=== PATIENT | female | born 1985 | race Caucasian/White ===

== ENCOUNTER 2017-10-10 17:45 | Inpatient (IN) | payer BC ==
[~2017-10-10] VITALS: Ht 170.2 cm; Wt 73.0 kg
[2017-10-10] MEDS ORDERED: LR 1,000 ML IV SCH (18:18)
[2017-10-10] MEDS ORDERED: OXYTOCIN/0.9 % SODIUM CHLORIDE 1,000 ML IV ONE (18:24)
[2017-10-10] MEDS ORDERED: DERMOPLAST SPRAY TP PRN (18:30)
[2017-10-10] MEDS ORDERED: DOCUSATE SODIUM 100 MG CAPSULE PO PRN (18:30)
[2017-10-10] MEDS ORDERED: SENNOSIDES/DOCUSATE SODIUM 1 TAB TABLET(SENOKOT-S) PO PRN (18:30)
[2017-10-10] MEDS ORDERED: WITCH HAZEL LEAF 1 MED.PAD MED.PAD TP PRN (18:30)
[2017-10-10 19:02] LABS: LYMPHOCYTES # (AUTO) 0.8 K/uL (1.0-5.5); MEAN CORPUSCULAR HEMOGLOBIN 32 pg (27-31); MEAN CORPUSCULAR HGB CONC 35 % (32-36); MONOCYTES # (AUTO) 0.5 K/uL (0.0-1.0); NEUTROPHILS # (AUTO) 14.8 K/uL (1.8-7.7)
[2017-10-10 19:06] LABS: BASOPHILS # (AUTO) 0.5 K/uL (0.0-0.2); BASOPHILS % (AUTO) 3.2 % (0.0-2.0); HEMATOCRIT 35.3 % (36-48); HEMOGLOBIN 12.4 g/dL (12.0-16.0); LYMPHOCYTES % (AUTO) 4.9 % (20.5-51.5); MEAN CORPUSCULAR VOLUME 92 fL (79.0-98.0); NEUTROPHILS % (AUTO) 88.9 % (40.0-70.0); PLATELET COUNT (AUTO) 176 K/uL (130-430); RED BLOOD CELL COUNT(AUTO) 3.82 MIL/uL (4.2-6.2); RED CELL DISTRIBUTION WIDTH 12.3 % (9.0-15.0); WHITE BLOOD COUNT (AUTO) 16.6 K/uL (4.8-10.8)
[2017-10-11] MEDS ORDERED: IBUPROFEN 600 MG TABLET PO SCH
[2017-10-11 18:23] LABS: HEMATOCRIT 34.1 % (36-48); HEMOGLOBIN 11.8 g/dL (12.0-16.0)
== END 2017-10-11 19:15 | disposition home or self-care (01) | DRG 775 ==
LOC: SPU 17:45
PROVIDERS: ADMIT Specialist; ATTEND Specialist
PROC: 10E0XZZ Delivery of Products of Conception, External Approach (ICD-10-PCS; principal; 2017-10-10)
PROC: 30233S1 Transfusion of Nonautologous Globulin into Peripheral Vein, Percutaneous Approach (ICD-10-PCS; 2017-10-11)
DX: O80 Encounter for full-term uncomplicated delivery (principal); Z3A.40 40 weeks gestation of pregnancy; Z37.0 Single live birth
CPT/HCPCS: 36415; 85018-TC; 85025; 86592; 86886; 86900; 86901; J2790